=== PATIENT | female | born 1995 | race Caucasian/White ===

== ENCOUNTER → 2018-04-28 15:20 | Outpatient (CLI) | payer OTHER, SELFPAY ==
[2018-04-28 17:34] LABS: Chlamydia Trachomatis by PCR Negative (Negative); Neisserai gonorrhoeae by PCR Negative (Negative); Probe Check PASS; Sample Adequacy Control PASS; Specimen Processing Control PASS
[2018-05-07 11:39] LABS: HPV APTIMA, High Risk Negative (Negative)
[2018-05-07 13:00] LABS: HPV Reflexed? YES, CHARGE PATIENT
== END ==
PROVIDERS: Visit Provider Obstetrics & Gynecology
DX: Z01.419 Encounter for gynecological examination (general) (routine) without abnormal findings (principal); Z12.4 Encounter for screening for malignant neoplasm of cervix; Z11.3 Encounter for screening for infections with a predominantly sexual mode of transmission
CPT/HCPCS: 87491; 87591; 87624; 88175; G0145

== ENCOUNTER → 2019-05-22 14:05 | Outpatient (CLI) | payer OTHER, SELFPAY ==
[2019-02-24 14:24] VITALS: BMI 36.2
[2019-05-22 18:25] LABS: Chlamydia Trachomatis by PCR POSITIVE (Negative); Neisserai gonorrhoeae by PCR Negative (Negative)
[2019-05-22 18:26] LABS: Probe Check PASS
[2019-05-29 11:59] LABS: HPV APTIMA, High Risk Negative (Negative)
[2019-05-29 12:05] LABS: HPV Reflexed? YES, CHARGE PATIENT
== END ==
PROVIDERS: Family Provider Pediatrics; PCP Pediatrics; Referring Provider Obstetrics & Gynecology; Visit Provider Obstetrics & Gynecology
DX: Z12.4 Encounter for screening for malignant neoplasm of cervix (principal); Z11.3 Encounter for screening for infections with a predominantly sexual mode of transmission
CPT/HCPCS: 87491; 87591; 87624; 88175; G0145

== ENCOUNTER → 2019-05-26 13:21 | Outpatient (CLI) | payer OTHER, SELFPAY ==
[2019-02-24 14:24] VITALS: BMI 36.2
--- NOTE | 2019-05-26 13:27 | US_ITS ---
STUDY: ULTRASOUND BREAST - LEFT REASON FOR EXAM: Female, 23 years old. Fatty mass in the left breast. TECHNIQUE: Axial and longitudinal images of the LEFT breast were performed with a high resolution ultrasound transducer. COMPARISON: None. FINDINGS: LEFT Breast: The lower inner quadrant of the left breast was examined by ultrasound. There is homogeneous fibroglandular tissue. No sonographic abnormalities. US/Breast Limited Unilateral IMPRESSION: No sonographic abnormality is seen. ASSESSMENT CATEGORY: BIRADS Category 1: Negative. A letter regarding these results will be sent to the patient by the facility within 30 days. Electronically Signed: Glenn Trujillo, at 11:16 EDT , Service support ,
== END ==
PROVIDERS: Family Provider Pediatrics; PCP Pediatrics; Referring Provider Obstetrics & Gynecology; Visit Provider Obstetrics & Gynecology
DX: N63.23 Unspecified lump in the left breast, lower outer quadrant (principal)
CPT/HCPCS: 76642

== ENCOUNTER → 2019-06-23 15:23 | Outpatient (CLI) | payer OTHER, SELFPAY ==
[2019-02-24 14:24] VITALS: BMI 36.2
[2019-06-23 22:18] LABS: Chlamydia Trachomatis by PCR Negative (Negative); Neisserai gonorrhoeae by PCR Negative (Negative); Probe Check PASS; Sample Adequacy Control PASS; Specimen Processing Control PASS
== END ==
PROVIDERS: Visit Provider Obstetrics & Gynecology
DX: Z11.3 Encounter for screening for infections with a predominantly sexual mode of transmission (principal); A56.00 Chlamydial infection of lower genitourinary tract, unspecified
CPT/HCPCS: 87491; 87591

== ENCOUNTER → 2019-08-06 13:32 | Outpatient (CLI) | payer OTHER, SELFPAY ==
[2019-02-24 14:24] VITALS: BMI 36.2
[2019-08-06 17:45] LABS: Neisserai gonorrhoeae by PCR Negative (Negative); Probe Check PASS
[2019-08-06 17:46] LABS: Chlamydia Trachomatis by PCR POSITIVE (Negative)
== END ==
PROVIDERS: Visit Provider Obstetrics & Gynecology
DX: Z11.3 Encounter for screening for infections with a predominantly sexual mode of transmission (principal); A56.00 Chlamydial infection of lower genitourinary tract, unspecified
CPT/HCPCS: 87491; 87591

== ENCOUNTER → 2019-12-02 | Outpatient (CLI) | payer OTHER, SELFPAY ==
[2019-02-24 14:24] VITALS: BMI 36.2
[2019-12-02 20:53] LABS: Chlamydia Trachomatis by PCR Negative (Negative); Neisserai gonorrhoeae by PCR Negative (Negative); Probe Check PASS; Sample Adequacy Control PASS; Specimen Processing Control PASS
== END | disposition home or self-care (01) ==
LOC: LABSPEC 17:01
PROVIDERS: Visit Provider Obstetrics & Gynecology
DX: Z11.3 Encounter for screening for infections with a predominantly sexual mode of transmission (principal)
CPT/HCPCS: 87491; 87591

== ENCOUNTER → 2020-06-21 15:32 | Outpatient (CLI) | payer OTHER, SELFPAY ==
[2019-02-24 14:24] VITALS: BMI 36.2
[2020-06-23 20:07] LABS: Chlamydia By Nucleic Acid AMP Negative (Negative)
[2020-06-23 20:33] LABS: Gonococcus By Nucleic Acid AMP Negative (Negative)
[2020-06-24 15:21] LABS: HPV Reflexed? NOT INDICATED
== END ==
PROVIDERS: Visit Provider Obstetrics & Gynecology
DX: Z11.3 Encounter for screening for infections with a predominantly sexual mode of transmission (principal); Z01.419 Encounter for gynecological examination (general) (routine) without abnormal findings; Z12.4 Encounter for screening for malignant neoplasm of cervix
CPT/HCPCS: 87491; 87591; 88175; G0145

== ENCOUNTER → 2021-08-23 14:18 | Outpatient (CLI) | payer OTHER, SELFPAY ==
[2021-08-23 16:00] LABS: HIV - WCH Non-Reactive (Nonreactive)
[2021-08-25 21:07] LABS: Chlamydia By Nucleic Acid AMP Negative (Negative)
[2021-08-25 21:46] LABS: Gonococcus By Nucleic Acid AMP Negative (Negative)
== END ==
PROVIDERS: Visit Provider Obstetrics & Gynecology
DX: Z11.3 Encounter for screening for infections with a predominantly sexual mode of transmission (principal)
CPT/HCPCS: 36415; 86703; 87491; 87591

== ENCOUNTER → 2023-04-18 | Outpatient (CLI) | payer OTHER, SELFPAY ==
[2023-04-18 12:46] LABS: 24 Hour Urine Protein 193.8 mg/24HR (<150 MG/24HR); 24HR. UA Prot. Total Volume 1900 mL; Urine Protein (24 Hour) 10.2 mg/dL (<11.9)
== END | disposition home or self-care (01) ==
LOC: LABSPEC 11:42
PROVIDERS: PCP Student in an Organized Health Care Education/Training Program; Referring Provider Obstetrics & Gynecology; Visit Provider Obstetrics & Gynecology
DX: O13.3 Gestational [pregnancy-induced] hypertension without significant proteinuria, third trimester (principal); Z3A.00 Weeks of gestation of pregnancy not specified
CPT/HCPCS: 81050; 84156